=== PATIENT | female | born 1955 | race Caucasian/White ===

== ENCOUNTER 2020-01-24 18:35 | Emergency (ER) | payer OTHER ==
[~2020-01-24] VITALS: Ht 165.1 cm; Wt 51.7 kg
[2020-01-24 18:43] VITALS: Ht 165.1 cm; Wt 51.7 kg
[2020-01-24 20:47] VITALS: BP 115/54
== END 2020-01-24 20:47 | disposition home or self-care (01) ==
LOC: ED 18:35
DX: S22.21XA Fracture of manubrium, initial encounter for closed fracture (principal); W18.39XA Other fall on same level, initial encounter; Y93.89 Activity, other specified; Y92.89 Other specified places as the place of occurrence of the external cause; Y99.8 Other external cause status
CPT/HCPCS: J1885